=== PATIENT | female | born 1955 | race Asian ===

== ENCOUNTER 2017-03-02 08:22 | Emergency (ER) | payer BC ==
[~2017-03-02] VITALS: Ht 165.1 cm; Wt 68.0 kg
[2017-03-02 08:22] VITALS: BP_SYST 140
[2017-03-02] MEDS ORDERED: NA PHOS,M-B/NA PHOS,DI-BA 118 ML (FLEET ENEMA) RC ONE (09:15)
[2017-03-02] MEDS ORDERED: MAGNESIUM CITRATE 300 ML ORAL SOLUTION PO ONE (09:15)
[2017-03-02 10:50] VITALS: BP_SYST 138
== END 2017-03-02 10:50 | disposition home or self-care (01) ==
LOC: SED 08:22
DX: K59.00 Constipation, unspecified (principal)
CPT/HCPCS: 74000-TC; 99284